=== PATIENT | female | born 1990 | race Two or more races ===

== ENCOUNTER 2022-03-24 16:39 | Emergency (ER) | payer MEDICAID, OTHER ==
[~2022-03-24] VITALS: Ht 152.4 cm; Wt 79.9 kg
[2022-03-24 17:05] VITALS: BP 132/66
[2022-03-24] MEDS ORDERED: methylPREDNISolone SOD SUCC 125 MG/2 ML VL IV ONE (18:30)
[2022-03-24] MEDS ORDERED: ceFAZolin 1GM/50ML 100 ML IV ONE (18:30)
[2022-03-24 19:07] LABS: Basophils # (auto) 0 10 ^3/uL (0-0.2); Basophils % (auto) 0.3 % (0.0-2.0); Eosinophils # (auto) 0 10 ^3/uL (0-0.8); Eosinophils % (auto) 0.2 % (0.0-7.0); Hematocrit 32.7 % (36.0-46.0); Lymphocytes # (auto) 1.5 10 ^3/uL (0.4-5.4); Mean Corpuscular Hemoglobin 28.4 pg (28.0-32.0); Mean Corpuscular Hgb Conc. 33.6 g/dL (32.0-36.0); Mean Corpuscular Volume 84.3 fL (80.0-100.0); Monocytes # (auto) 0.7 10 ^3/uL (0-1.3); Monocytes % (auto) 12.5 % (0.0-12.0); Neutrophils # (auto) 3.3 10 ^3/uL (1.6-8.6); Red Blood Cells 3.88 10^6/uL (4.0-5.20); White Blood Cell 5.6 10^3/uL (4.4-10.8)
[2022-03-24 19:20] LABS: INR 0.99 (0.9-1.15); Partial Thromboplastin Time 31.6 sec (24.6-33.4)
[2022-03-24 19:35] LABS: Albumin 2.9 g/dL (3.4-5.0); Calcium 8.6 mg/dL (8.5-10.1)
[2022-03-24 19:39] LABS: BUN/Creatinine Ratio 10.5; Bilirubin, Total 0.3 mg/dL (0.2-1.0); Total Protein 8.2 g/dL (6.4-8.2)
[2022-03-24] MEDS ORDERED: ONDANSETRON HCL 4 MG/2 ML VIAL IV ONE (20:45)
[2022-03-24] MEDS ORDERED: SODIUM CHLORIDE 0.9% 1,000 ML IV ONE (21:15)
[2022-03-24] MEDS ORDERED: CLINDAMYCIN 600MG IV 50 ML IV ONE (21:15)
[2022-03-25] MEDS ORDERED: IOHEXOL 350 MG/ML 100ML IJ ONE (00:36)
[2022-03-25] MEDS ORDERED: ceFAZolin 1GM/50ML 50 ML IV SCH (02:00)
[2022-03-25] MEDS ORDERED: CLINDAMYCIN 600MG IV 50 ML IV ONE (06:00)
== END 2022-03-25 03:29 | disposition left against medical advice (07) ==
LOC: ER 16:39
DX: K11.20 Sialoadenitis, unspecified (principal); J36 Peritonsillar abscess; E01.0 Iodine-deficiency related diffuse (endemic) goiter; R07.0 Pain in throat
CPT/HCPCS: 36415; 70490; 70491; 80053; 84443; 85025; 85610; 85730; 87040; 96365; 96375; 99285; J0690; J2930; Q9967

== ENCOUNTER 2024-12-23 09:36 | Emergency (ER) | payer MEDICAID ==
[~2024-12-23] VITALS: Ht 152.4 cm; Wt 84.1 kg
--- NOTE | 2024-12-23 10:06 | ED.PDOC ---
History of Present Illness HPI Comments 34-year-old female patient presents to the clinic for a mass the base of the right side of the neck. Patient also has swelling to the right side of face. Patient complaining of pain. Patient denies fevers. Patient states that this occurred in 2021. Patient denies any dental pain. Patient complaining of swelling to tonsils. Patient states that when his previously occurred she went to [facility] to the emergency room. Patient states that she was treated there but that she was admitted to the hospital. Patient states that she had further complications and was in the hospital for almost 1 month. Patient does not currently have a primary care provider but states that she recently got medical and will be finding a new PCP. Chief Complaint: Face pain Time Seen by MD: 09:43 Allergies: Coded Allergies: NO KNOWN ALLERGIES (Unverified , 03/24/22) Home Meds Active Scripts Ibuprofen (Ibuprofen) 800 Mg Tab, 1 TAB PO TID for 14 Days, #42 TAB 1 Refill Prov:WILEY TURNERP 12/23/24 Amoxicillin & Pot Clavulanate (AUGMENTIN TABLET) 875 Mg Tb, 875 MG PO BID for 14 Days, #28 TAB Prov:WILEY TURNER ETCHER MACHINE 12/23/24 Mode of Arrival: Ambulatory Severity: Moderate Timing: Days Duration: Days Prehospital treatment: None Past Medical History PAST MEDICAL HISTORY: Denies Surgical History: Denies all surgeries MEDICAL APPARATUS MODEL MAKER History: No Pertinent MEDICAL APPARATUS MODEL MAKER History Family History Family History: Reviewed,noncontributory to illness, No family hx of Cancer, No family hx of DM, No family hx of Heart gretta, No family hx of HTN, No family hx ofKidney gretta, No family hx of Liver gretta, No family hx of Lung gretta, No family hx of Stroke Social History Smoker: Non-Smoker Alcohol: Occasionally Drugs: Denies Drug Use Lives In: Home Constitutional: denies: chills, diaphoresis, fatigue, fever, malaise, sweats, weakness, others EENTM: reports: throat pain, throat swelling Respiratory: reports: others (Patient states difficulty breathing and swallowing) Cardiovascular: denies: chest pain, dizzy spells, diaphoresis, Dyspnea on exertion, edema, irregular heart beat, left arm pain, lightheadedness, palpitations, PND, syncope, others Gastrointestinal: denies: abdomen distended, abdominal pain, blood streaked bowels, constipated, diarrhea, dysphagia, difficulty swallowing, hematemesis, melena, nausea, poor appetite, poor fluid intake, rectal bleeding, rectal pain, vomiting, others Genitourinary: denies: abnormal vagina bleeding, burning, dyspareunia, dysuria, flank pain, frequency, hematuria, incontinence, pain, , vagina discharge, urgency, others Neurological: denies: dizziness, fainting, headache, left sided numbness, left sided weakness, numbness, paresthesia, pre-existing deficit, right sided numbness, right sided weakness, seizure, speech problems, tingling, tremors, weakness, others Musculoskeletal: denies: back pain, gout, joint pain, joint swelling, muscle pain, muscle stiffness, neck pain, others Integumetry: denies: bruises, change in color, change in hair/nails, dryness, laceration, lesions, lumps, rash, wounds, others Allergic/Immunocompromised: denies: Difficulty Healing, Frequent Infections, Hives, Itching, others Hematologic/Lymphatic: denies: anemia, blood clots, easy bleeding, easy bruising, swollen glands, others Endocrine: denies: excessive hunger, excessive sweating, excessive thirst, excessive urination, flushing, intolerance to cold, intolerance to heat, unexplained weight gain, unexplained weight loss, others Psychiatric: denies: anxiety, bipolar disorder, depression, hopeless, panic disorder, schizophrenia, sleepless, suicidal, others All Other Systems: Reviewed and Negative Physical Exam General Appearance: Mild Distress, Normal HEENT: Normal ENT Inspection, TM Abnormal (R) (Cerumen impaction on right) Neck: Full Range of Motion, Non-Tender, Normal, Normal Inspection, Other (Swollen lymph node on the base of right side of neck with tenderness) Respiratory: Chest Non-Tender, Lungs Clear, No Accessory Muscle Use, No Respiratory Distress, Normal Breath Sounds Cardiovascular: No Edema, No JVD, No Murmur, No Gallop, Normal Peripheral Pulses, Regular Rate/Rhythm Breast Exam: Deferred Gastrointestinal: No Organomegaly, Non Tender, No Pulsatile Mass, Normal Bowel Sounds, Soft Genitalia: Deferred Pelvic: Deferred Rectal: Deferred Extremities: No calf tenderness, Normal capillary refill, Normal inspection, Normal range of motion, Non-tender, No pedal edema Neurologic: Alert, manufacturing electrician II-XII nml as Tested, No Motor Deficits, Normal Affect, Normal Mood, No Sensory Deficits Cerebellar Function: Normal Reflexes: Normal Skin: Dry, Normal Color, Warm Lymphatic: No Adenopathy Was a procedure done? Was a procedure done?: No Differential Dx Considerations may include: neck abscess, mastoiditis, strep throat, dental infection X-Ray, Labs, Meds, VS Vital Signs Date Time Temp Pulse Resp B/P (MAP) Pulse Ox O2 Delivery O2 Flow Rate FiO2 12/23/24 10:33 98.1 86 17 122/69 (86) 97 98.1 12/23/24 10:33 68 17 97 Room Air 12/23/24 09:37 98.3 107 16 119/67 96 98.3 Lab Test 12/23/24 10:21 Range/Units White Blood Count 9.2 4.4-10.8 10^3/uL Red Blood Count 4.34 4.0-5.20 10^6/uL Hemoglobin 12.0 L 12.2-16.2 g/dL Hematocrit 36.2 36.0-46.0 % Mean Corpuscular Volume 83.5 80.0-100.0 fL Mean Corpuscular Hemoglobin 27.7 L 28.0-32.0 pg Mean Corpuscular Hemoglobin Concent 33.2 32.0-36.0 g/dL Red Cell Distribution Width 16.7 H 11.8-14.3 % Platelet Count 353 140-450 10^3/uL Mean Platelet Volume 6.9 6.9-10.8 fL Neutrophils (%) (Auto) 64.0 37.0-80.0 % Lymphocytes (%) (Auto) 24.3 10.0-50.0 % Monocytes (%) (Auto) 10.4 0.0-12.0 % Eosinophils (%) (Auto) 0.8 0.0-7.0 % Basophils (%) (Auto) 0.5 0.0-2.0 % Neutrophils # (Auto) 5.9 1.6-8.6 10 ^3/uL Lymphocytes # (Auto) 2.2 0.4-5.4 10 ^3/uL Monocytes # (Auto) 1.0 0-1.3 10 ^3/uL Eosinophils # (Auto) 0.1 0-0.8 10 ^3/uL Basophils # (Auto) 0 0-0.2 10 ^3/uL Nucleated Red Blood Cells 0.0 % Current Medications Medications (Trade) Dose Ordered Sig/Ricardo Route Start Time Stop Time Status Last Admin Ketorolac Tromethamine (Toradol Injection) 60 mg ONCE ONCE IM 12/23/24 10:15 12/23/24 10:21 DC 12/23/24 10:25 Methylprednisolone Acetate (DEPO-Medrol) 40 mg ONCE ONCE IM 12/23/24 10:15 12/23/24 10:21 DC 12/23/24 10:22 X-Ray, Labs, Meds, VS Comment ORDERING PHYSICIAN: WILEY TURNER ETCHER MACHINE PROCEDURE(s): STNUS - SOFT TISSUE NECK REASON: ORDER NUMBER(s): [id number], ACCESSION NUMBER(s): [id number] US SOFT TISSUE NECK, HISTORY: right neck lump TECHNICAL DATA: Transverse and longitudinal sonographic images were obtained of the right neck. COMPARISON: NECK WITH CONTRAST SOFT on DOS: 03/24/22, NECK WITHOUT CONTRAST on DOS: 03/24/22 FINDINGS: IMPRESSION: 1.3 x 0.9 x 0.4 cm hypoechoic structure in the right neck is likely a lymph node. ATED BY: RAJ RINCON MD DICTATED DATE/TIME: 12/23/24 105 SIGNED BY: RAJ RINCON MD SIGNED DATE/TIME: 12/23/24 105 CC: PATIENT: RICHARD DINH ACCT: [id number] UNIT: [id number] : 1990 LOC: ER ROOM / BED: / AGE / SEX: 34 / F ADM STATUS: REG ER SERVICE 1048 ORDERING PHYSICIAN: WILEY TURNER ETCHER MACHINE PROCEDURE(s): NKICT - NECK WITHOUT CONTRAST REASON: Hx of siladenitis ORDER NUMBER(s): [id number], ACCESSION NUMBER(s): [id number] EXAM: CT NECK WITHOUT CONTRAST INDICATION: Hx of siladenitis Exam Date: 12/23/2024 10:54 AM COMPARISON: NK2CT on DOS: 03/24/22, NKICT on DOS: 03/24/22, NECK WITHOUT CONTRAST on DOS: 03/24/22 TECHNIQUE: CT of the neck without intravenous contrast. RADIATION DOSE: CTDIvol: 15.5 mGy, DLP: 400 mGy*cm FINDINGS: There is no evidence of cervical mass lesion, pathologically enlarged lymph nodes or fluid collection. Small lymph nodes are present in the upper neck. The fat planes of the neck appear intact. The airway and larynx are unremarkable. The parotid, submandibular and thyroid glands are unremarkable. The vascular structures of the neck appear patent. The visualized lung apices are clear. The limited visualized portions of the brain are unremarkable. The osseous structures are unremarkable. IMPRESSION: 1. No evidence of cervical mass lesion, pathologically enlarged lymph nodes or fluid collection. 2. Study limited by lack of IV contrast ATED BY: EUSEBIO NIX MD DICTATED DATE/TIME: 12/23/24 1143 SIGNED BY: EUSEBIO NIX MD SIGNED DATE/TIME: 12/23/24 1143 CC: On re-evaluation patient has symptomatic improvement. Patient is stable for discharge at this time. All test results and diagnostic imaging have been interpreted. All diagnostic findings, discharge care, and education instruction provided to the patient. Follow-up with PCP in 2-3 days Patient verbalized understanding, discharge instructions and agrees to treatment plan Vital signs are stable Patient is ambulatory Patient advised of which symptoms necessitate a return visit to the emergency room. Patient to return emergency room for any new worsening symptoms. Patient is aware that the purpose of this visit is for an acute medical emergency requiring emergent stabilization. Chronic conditions, including malignancies have not been ruled out. Patient is instructed to follow up with PCP as directed for continued care and workup. If unable to arrange follow up, patient is to return to the emergency room for reassessment. Patient was given verbal and written discharge instructions and acknowledges understanding Time of 1ST Reevaluation: 11:00 Reevaluation 1ST: Improved Patient Education/Counseling: Diagnosis, Treatment, Prognosis Family Education/Counseling: No Family Present SEPSIS Sepsis Screen Date sepsis recognized/suspect: Dec 23, 2024 Time Sepsis recognized/suspect: 936 Recent Procedure: No On Antibiotic Therapy: No Respiratory Rate >20: No Heart Rate >90: No Temp<36 C (96.8 F) or >38.3 C: No SBP <90 or MAP <65 mmHG: No New Acute Mental Status Change: No Is the patient on CPAP, BIPAP,: No IV fluid challenge completed?: No Physician Orders Soft Tissue Neck (12/23/24 10:02) Neck Without Contrast (12/23/24 10:48) Vital Signs Date Time Temp Pulse Resp B/P (MAP) Pulse Ox O2 Delivery O2 Flow Rate FiO2 12/23/24 10:33 98.1 86 17 122/69 (86) 97 98.1 12/23/24 10:33 68 17 97 Room Air 12/23/24 09:37 98.3 107 16 119/67 96 98.3 Laboratory Tests Test 12/23/24 10:21 White Blood Count 9.2 10^3/uL (4.4-10.8) Medications Medications Dose Ordered Sig/Ricardo Route Start Time Stop Time Status Last Admin Dose Admin Ketorolac Tromethamine 60 mg ONCE ONCE IM 12/23/24 10:15 12/23/24 10:21 DC 12/23/24 10:25 Methylprednisolone Acetate 40 mg ONCE ONCE IM 12/23/24 10:15 12/23/24 10:21 DC 12/23/24 10:22 Departure 1 Departure Time of Disposition: 12:04 Impression: Primary Impression: Tonsillitis Disposition: 01 HOME / SELF CARE / HOMELESS Condition: Stable e-Prescriptions Ibuprofen (Ibuprofen) 800 Mg Tab 1 TAB PO TID for 14 Days, #42 TAB 1 Refill Prov: WILEY TURNER [facility] 12/23/24 Amoxicillin & Pot Clavulanate (AUGMENTIN TABLET) 875 Mg Tb 875 MG PO BID for 14 Days, #28 TAB Prov: WILEY TURNER [facility] 12/23/24 Discharged With: Self Critical Care Note Critical Care Time?: No Stability Stability form required: No Heart Score Heart Score: Heart Score Response (Comments) Value History N/A 0 EKG N/A 0 Age N/A 0 Risk Factors N/A 0 Troponin N/A 0 Total [address] [facility] Dec 23, 2024 10:06
[2024-12-23] MEDS: methylPREDNISolone ACETATE 80 MG/ML VL IM ONE (10:22)
[2024-12-23] MEDS: KETOROLAC TROMETH 60MG/2ML VIAL IM ONE (10:25)
[2024-12-23 10:29] LABS: Hematocrit 36.2 % (36.0-46.0); Hemoglobin 12.0 g/dL (12.2-16.2); Mean Corpuscular Hemoglobin 27.7 pg (28.0-32.0); Mean Corpuscular Volume 83.5 fL (80.0-100.0); Nucleated Red Blood Cells % 0.0 %
[2024-12-23 10:33] VITALS: BP 122/69; PULSE 68; RESP 17; TEMP 98.1; O2SAT 97
--- NOTE | 2024-12-23 11:02 | DVH ---
US SOFT TISSUE NECK, HISTORY: right neck lump TECHNICAL DATA: Transverse and longitudinal sonographic images were obtained of the right neck. COMPARISON: NECK WITH CONTRAST SOFT on DOS: 03/24/22, NECK WITHOUT CONTRAST on DOS: 03/24/22 FINDINGS: IMPRESSION: 1.3 x 0.9 x 0.4 cm hypoechoic structure in the right neck is likely a lymph node.
--- NOTE | 2024-12-23 11:45 | DVH ---
EXAM: CT NECK WITHOUT CONTRAST INDICATION: Hx of siladenitis Exam Date: 12/23/2024 10:54 AM COMPARISON: NK2CT on DOS: 03/24/22, NKICT on DOS: 03/24/22, NECK WITHOUT CONTRAST on DOS: 03/24/22 TECHNIQUE: CT of the neck without intravenous contrast. RADIATION DOSE: CTDIvol: 15.5 mGy, DLP: 400 mGy*cm FINDINGS: There is no evidence of cervical mass lesion, pathologically enlarged lymph nodes or fluid collection . Small lymph nodes are present in the upper neck. The fat planes of the neck appear intact. The airway and larynx are unremarkable. The parotid, submandibular and thyroid glands are unremarkable. The vascular structures of the neck appear patent. The visualized lung apices are clear. The limited visualized portions of the brain are unremarkable. The osseous structures are unremarkable. IMPRESSION: 1. No evidence of cervical mass lesion, pathologically enlarged lymph nodes or fluid collection. 2. Study limited by lack of IV contrast
[2024-12-23] MEDS ORDERED: AUG875T PO (12:04)
[2024-12-23] MEDS ORDERED: IBUP-1456 PO (12:04)
== END 2024-12-23 12:17 | disposition home or self-care (01) ==
LOC: ER 09:36
DX: J03.90 Acute tonsillitis, unspecified (principal); R07.0 Pain in throat; M54.2 Cervicalgia
CPT/HCPCS: 36415; 70490; 76536; 85025; 96372; 99285; J1010; J1885